=== PATIENT | female | born 1940 | race Caucasian/White ===

== ENCOUNTER → 2023-05-08 15:12 | Day surgery (SDC) | payer MEDICARE, SELFPAY | LOC: SDSPAT 15:12 | PROVIDERS: ATTENDING PHYSICIAN Internal Medicine Cardiovascular Disease; FAMILY PHYSICIAN Internal Medicine | DX: Z01.818 Encounter for other preprocedural examination (principal); I48.91 Unspecified atrial fibrillation | CPT/HCPCS: 75572; Q9967 ==

== ENCOUNTER 2023-05-10 05:51 | Day surgery (SDC) | payer MEDICARE, SELFPAY ==
[2023-04-19 12:58] VITALS: BMI 39.7
[2023-05-10] VITALS (12 sets, daily range): BP systolic 88–127; BP diastolic 41–63; BMI 37.7
[2023-05-10 09:04] LABS: ACT-LR - POC 289 Seconds (116-155)
[2023-05-10 09:34] LABS: ACT-LR - POC 376 Seconds (116-155)
[2023-05-10 09:56] LABS: ACT-LR - POC 316 Seconds (116-155)
--- NOTE | 2023-05-10 10:16 | ITS.CL.ABL ---
[facility] - Ablation
Ablation
Procedure Report:
ELECTROPHYSIOLOGY ABLATION STUDY
DATE:: May 10, 2023 REFERRING: Dr. Gay Núñez
INDICATION: Persistent supraventricular tachycardia in the form of atrial fibrillation. History of VSD repair and cryoballoon PVI. Prior thermal injury to the proximal mainstem bronchus
HISTORY: See H and P. As above
ANTIARRHYTHMIC DRUG: Amiodarone
PRE-PROCEDURE GRETCHEN: No atrial thrombus on intracardiac ultrasound
PRESENTING RHYTHM: Typical atrial flutter cycle length 300 ms
'TIME-OUT': called and confirmed.
SEDATION/ANESTHESIA: provided via the anesthesia department using general anesthesia (LMA).
INTRAVENOUS/ARTERIAL ACCESS:
Right femoral venous - 8Fr
Left femoral venous - 8 Fr, 6 Fr
Ultrasound guidance for bilateral femoral vein access was utilized by me to obtain access with demonstration of normal anatomy
CHADS-VASC Score:
HAS-Bled Score
PROCEDURE:
1. A decapolar CS catheter was placed within the CS for mapping and pacing. This was also used as the reference catheter for the 3-D map. Activation and treatment mapping demonstrated the entire cycle length within the right atrium.
Counterclockwise activation about the tricuspid annulus. There was an area of scar in the lateral right atrium by the IVC from the prior atriotomy. Entrainment demonstrated CTI dependent atrial flutter 300 to 310 ms after treatment to target
arrhythmia a 4 mm tactic cath was brought to the CTI at 30 W�42 decreased at 10 to 20 g forced at 22nd lesions. Tachycardia slowed and terminated with interest was conduction time of 200 ms which was also redetermine at the end of the procedure
with grid mapping to have persistent bidirectional block. We then proceeded to transseptal puncture as below.
2. The intracardiac ultrasound catheter was positioned in the RA to identify the FO for targeting of transseptal puncture, assist in identification of the pulmonary vein ostia, monitoring pre and post ablation pulmonary vein flow velocities,
monitoring for 'bubble' formation during RF application as a sign of thermal injury, and to monitor for pericardial effusion during mapping and ablation procedure. Left atrial size, LV ejection fraction, and pulmonary vein flows were monitored
pre and post ablation procedure. The other valves were inspected and found to be free of significant regurgitation or stenosis.
3. Half of the calculated heparin bolus was administered prior to the first transeptal puncture. Transseptal puncture was performed to diagnose RA and LA pressure so that safety of LA mapping and ablation could be further assessed, and to access
the left atrium and pulmonary veins for mapping and ablation. This entailed advancing an 10 [place] steerable with dilator into the superior vena cava and withdrawing both (monitoring intracardiac ultrasound, fluoroscopy and tip pressure) with the
tip oriented toward the atrial septum. The fossa ovalis was engaged (indicated by sudden displacement of the sheath tip as well as tenting of the fossa seen on intracardiac ultrasound). Left atrial access required a pass with the [place]
needle extended. Left atrial catheter position was confirmed by pressure monitoring (RA mean pressure 8 mm Hg and LA mean presure 14 mm Hg), LA saturation (99%), as well as fluoroscopy. The sheath was advanced over the dilator and positioned in
the left atrium. Over ProTrac wire the flex cath sheath was placed in left atrium. The remainder of the calculated heparin bolus was administered and heparin was
infused to maintain ACT at 300 -350 seconds throughout the case.
4. RA pacing was performed via the proximal decapolar poles and LA pacing was performed via the distal decapolr poles.
5. A quadrapolar catheter was first positioned at the His position for His Bundle recording which was tagged via the 3-D Navex sytem, and then passed to the RVA for RV pacing and recording.
6. The ablation catheter was positioned through one of the transeptal seaths and a 20 pole ring mapping catheter was positioned through the second seath into the LA and then the ostia of the LIPV, LSPV, RSPV and the RIPV.
7. Next, a 3-D map was created using Navex. A 3-D reconstructed CT image was compared to the 3-D Navex map to assist in anatomic interpretation, mapping and ablation. The CT image and the NavX image were fused.
8. Pulmonary lesions were given to the septum of the right severe pulmonary vein and the posterior roof of the right superior pulmonary vein and inferior portion of the right inferior pulmonary vein as anchoring lesions for the posterior wall.
Extrapulmonary vein lesions were given to the posterior wall was then isolated with PFA for a total of 40 lesions given and multipolar catheter was then placed with each of the 4 veins demonstrating entrance and exit block as well as the posterior
wall demonstrating entrance and exit block.
9. An RF line was also placed at the IVC-TVA isthmus to interupt the potential typical atrial flutter circuit. At the end of RF at this site, pacing from the lateral side of the line and the medial side of the line was performed to evaluate for
bidirectinal block.
TOTAL FLOURO TIME: 16.7 minutes
TOTAL RF DURATION: 6 minutes
REVERSAL OF HEPARIN: 35 mg of protamine, slow IV administration
COMPLICATIONS:
None
Intracardiac US shows no pericardial effusion post ablation.
SUMMARY:
Complex left atrial mapping and ablation.
CTI flutter ablation as above. Pulmonary vein and extrapulmonary lesions given as above. Pulmonary veins were isolated and antral fashion at baseline and the left atrial posterior wall was isolated during this procedure. No hemoptysis was noted
intraprocedure.
RECOMMENDATIONS:
1. Admit to monitored bed.
2. Resume anticoagulation
3. Stop amiodarone 1 month
4. Consider same-day discharge
Copy to: Dr. Gay Núñez
[2023-05-10] MEDS: ANESTHETIC LOZENGE 1 LOZENGE PO (10:47)
--- NOTE | 2023-05-10 14:56 | W.PN.UPDATE ---
Update Note
Progress Note Update
82 yo WF s/p PVI, CTI flutter ablation (same day). She feels good, no cp, sob, eduard diet, voiding, amb w/o dizziness, b/l groins c/d/i no HT. EKG SR 1 deg AVB. She will continue OAC Eliquis tonight at 4pm. She will continue metoprolol and amiodarone
stop Amio in 1 month. Activity restrictions reviewed. She will f/u Dr. Núñez in 1 mo. She is for d/c home after 3pm.
SUMMARY:�
Complex left atrial mapping and ablation.
CTI flutter ablation as above.� Pulmonary vein and extrapulmonary lesions given as above.� Pulmonary veins were isolated and antral fashion at baseline and the left atrial posterior wall was isolated during this procedure.� No hemoptysis was noted
intraprocedure.
RECOMMENDATIONS:
1. Admit to monitored bed.�
2. Resume anticoagulation
3.� Stop amiodarone 1 month
4.� Consider same-day discharge
Copy to: Dr. Gya Núñez
== END 2023-05-10 15:01 | disposition home or self-care (01) ==
LOC: CATH 05:51
PROVIDERS: ATTENDING PHYSICIAN Internal Medicine Cardiovascular Disease; FAMILY PHYSICIAN Internal Medicine; OTHER PHYSICIAN Internal Medicine Cardiovascular Disease
DX: I48.19 Other persistent atrial fibrillation (principal); I48.3 Typical atrial flutter; R06.09 Other forms of dyspnea; E78.00 Pure hypercholesterolemia, unspecified; I45.10 Unspecified right bundle-branch block; I49.5 Sick sinus syndrome; I50.32 Chronic diastolic (congestive) heart failure; Q21.0 Ventricular septal defect; I07.1 Rheumatic tricuspid insufficiency; K44.9 Diaphragmatic hernia without obstruction or gangrene; K76.0 Fatty (change of) liver, not elsewhere classified; K76.89 Other specified diseases of liver; M19.90 Unspecified osteoarthritis, unspecified site; M54.50 Low back pain, unspecified; G89.29 Other chronic pain; Z87.448 Personal history of other diseases of urinary system; E66.9 Obesity, unspecified; Z68.39 Body mass index [BMI] 39.0-39.9, adult; Z79.01 Long term (current) use of anticoagulants; Z88.1 Allergy status to other antibiotic agents; Z91.041 Radiographic dye allergy status
CPT/HCPCS: C1769; C1894; C1732; C1766; C2630; C1892; C1759; 76937; 85347; 93005; 93655; 93656; C1730